=== PATIENT | female | born 1980 | race Caucasian/White ===

== ENCOUNTER 2020-09-24 13:11 | Emergency (ER) | payer MEDICAID ==
[~2020-09-24] VITALS: Ht 177.8 cm; Wt 78.0 kg
[2020-09-24] MEDS ORDERED: ACETAMINOPHEN 325MG TABLET PO ONE (14:00)
[2020-09-24 15:32] VITALS: BP 129/75
== END 2020-09-24 15:33 | disposition home or self-care (01) ==
LOC: ER 13:35
DX: T14.8XXA Other injury of unspecified body region, initial encounter (principal); M54.2 Cervicalgia; R07.89 Other chest pain; V43.62XA Car passenger injured in collision with other type car in traffic accident, initial encounter; Y93.89 Activity, other specified; Y92.411 Interstate highway as the place of occurrence of the external cause
CPT/HCPCS: 71045; 72040; 81025; 99284